=== PATIENT | female | born 1985 | race American Indian/Alaskan Native ===

== ENCOUNTER 2016-06-02 17:14 | Outpatient (CLI) | payer OTHER ==
[2016-06-02 19:21] LABS: Bilirubin,Urine NEG (Negative); Blood,Urine NEG (Negative); Ketones,Urine NEG (Negative); Leukocyte Esterase,Urine NEG (Negative); Mucus,Urine FEW /HPF; Nitrite,Urine NEG (Negative); Protein,Urine <15 mg/dL mg/dL (Negative); Urobilinogen,Urine < 2.0 mg/dL (<2.0)
[2016-06-02] MEDS ORDERED: LACTATED RINGERS 500 ML IV ONE (20:00)
[2016-06-02] MEDS ORDERED: VISTARIL PO ONE (20:04)
== END 2016-06-02 20:16 | disposition home or self-care (01) ==
LOC: TRG 17:14
PROVIDERS: ATTEND Obstetrics & Gynecology
DX: O26.899 Other specified pregnancy related conditions, unspecified trimester (principal); R10.2 Pelvic and perineal pain; R25.2 Cramp and spasm; R11.0 Nausea; Z3A.00 Weeks of gestation of pregnancy not specified
CPT/HCPCS: 81001; Q0177

== ENCOUNTER 2016-08-23 20:08 | Outpatient (CLI) | payer OTHER ==
[2016-08-23 21:05] VITALS: BP 111/65
== END 2016-08-23 21:50 | disposition home or self-care (01) ==
LOC: TRG 20:08
PROVIDERS: ATTEND Obstetrics & Gynecology
DX: O47.03 False labor before 37 completed weeks of gestation, third trimester (principal); Z3A.36 36 weeks gestation of pregnancy
CPT/HCPCS: 59025

== ENCOUNTER 2020-08-07 16:58 | Outpatient (CLI) | payer OTHER ==
[2020-08-07] MEDS ORDERED: ONDANSETRON 4 MG/2 ML INJ IV ONE (17:21)
[2020-08-07 17:40] VITALS: BP 104/57
[2020-08-07] MEDS: LACTATED RINGERS 1,000 ML IV SCH ×2 (18:07→19:45)
== END 2020-08-07 20:35 | disposition home or self-care (01) ==
LOC: TRG 16:58 → APU 17:00 → TRG 20:35
PROVIDERS: ATTEND Obstetrics & Gynecology
DX: O21.2 Late vomiting of pregnancy (principal); O26.893 Other specified pregnancy related conditions, third trimester; R19.7 Diarrhea, unspecified; O09.523 Supervision of elderly multigravida, third trimester; O47.1 False labor at or after 37 completed weeks of gestation; Z3A.38 38 weeks gestation of pregnancy
CPT/HCPCS: 59025; 96361; 96365; J2405; J7120; 96360; 96374